=== PATIENT | female | born 1935 | race Two or more races ===

== ENCOUNTER 2019-05-23 00:51 | Emergency (ER) | payer MEDICARE, OTHER ==
[~2019-05-23] VITALS: Ht 149.9 cm; Wt 54.4 kg
[2019-05-23] MEDS ORDERED: SODIUM CHLORIDE 0.9% 500 ML IV ONE (01:42)
[2019-05-23 02:17] LABS: Basophils # (auto) 0 uL; Lymphocytes # (auto) 0.2 uL; Lymphocytes % (auto) 1.8 % (10.0-50.0); Nucleated Red Blood Cells % 0.2 %; White Blood Cell 13.5 10^3/uL (4.4-10.8)
[2019-05-23 02:19] LABS: Eosinophils # (auto) 0.1 uL; Eosinophils % (auto) 0.8 % (0.0-7.0); Hematocrit 33.6 % (36.0-46.0); Hemoglobin 11.8 g/dL (12.2-16.2); Mean Corpuscular Hemoglobin 35.5 pg (28.0-32.0); Mean Corpuscular Hgb Conc. 35.1 g/dL (32.0-36.0); Mean Corpuscular Volume 101.2 fL (80.0-100.0); Monocytes # (auto) 1.7 uL; Monocytes % (auto) 12.4 % (0.0-12.0); Neutrophils # (auto) 11.5 uL; Platelet Count (auto) 167 10^3/uL (140-450); Red Blood Cells 3.32 10^6/uL (4.0-5.20); Red Cell Distribution Width 14.5 % (11.8-14.3)
[2019-05-23 02:32] LABS: INR 1.04 (0.9-1.15)
[2019-05-23 02:35] LABS: Albumin 2.7 g/dL (3.4-5.0); BUN/Creatinine Ratio 25.2; Calcium 8.6 mg/dL (8.5-10.1); Magnesium 1.9 mg/dL (1.6-2.6); Potassium 4.3 mmol/L (3.5-5.1)
[2019-05-23 02:40] LABS: Bilirubin, Total 0.5 mg/dL (0.2-1.0); Total Protein 6.9 g/dL (6.4-8.2)
[2019-05-23 05:01] VITALS: BP 163/65
== END 2019-05-23 05:48 | disposition left against medical advice (07) ==
LOC: ER 00:51
DX: R53.1 Weakness (principal); Z53.21 Procedure and treatment not carried out due to patient leaving prior to being seen by health care provider
CPT/HCPCS: 36415; 71045; 80053; 82010; 82962; 83735; 83880; 84484; 85025; 85379; 85610; 85730; 93005